=== PATIENT | female | born 1955 | race Caucasian/White ===

== ENCOUNTER → 2016-12-29 23:24 | Outpatient (CLI) | payer MEDICAID | END | disposition home or self-care (01) | LOC: D.LABREF 23:24 | DX: M17.11 Unilateral primary osteoarthritis, right knee (principal); Z11.8 Encounter for screening for other infectious and parasitic diseases ==

== ENCOUNTER 2017-03-03 17:15 | Emergency (ER) | payer MEDICAID | END 2017-03-03 18:15 | disposition left against medical advice (07) | LOC: D.ER 17:15 | DX: R20.2 Paresthesia of skin (principal) ==

== ENCOUNTER 2018-05-26 10:52 | Outpatient (CLI) | payer MEDICAID ==
[~2018-05-26] VITALS: Ht 154.9 cm; Wt 113.6 kg
--- NOTE | ~2018-05-26 | HEMODYNAMI ---
PATIENT:EMILY CONNORS MEDICAL RECORD: [id number] : 55 LOCATION:DDIANE ADMISSION DATE: 05/26/18 Generatedon:05/26/201813:29 Patient name: EMILY CONNORS Patient #: [id number] SSN: : 1955 Date of study: 05/26/2018 Page: Of Hemodynamic Procedure Report Patient Data Patient Demographics Procedure consent was obtained First Name: EMILY Gender: Female Last Name: DORY : 1955 Patient #: [id number] Age: 62 year(s) Race: Unknown Additional ID: [id number] Contact details [address]: [address] [place] [address] [address] State: [place] City: [place] Zip code: [address] Admission Admission Data Admission Date: 05/26/2018 Admission Time: 10:52 Lab Results Lab Result Date: 05/26/2018 Lab Result Time: 0:00 Biochemistry Name Units Result Min Max BUN mg/dl 21 --(----)-* 7 18 Creatinine mg/dl 0.7 --(*---)-- 0.6 1.3 CBC Name Units Result Min Max Hemoglobin g/dl 12.2 *-(----)-- 13.5 17.5 Procedure Procedure Types Cath Procedure Diagnostic Procedure [facility] w/Coronaries Procedure Description Procedure Date Procedure Date: 05/26/2018 Procedure Start Time: 13:13 Procedure End Time: 13:27 Procedure Staff Name Function Manny Soto MD Performing Physician Shasha Wolfe RT Scrub Jasmine Banuelos RN Nurse Soledad Perez RT Monitor Procedure Data Cath Procedure Fluoroscopy Diagnostic fluoroscopy Total fluoroscopy Time: 0.9 time: 0.9 min min Diagnostic fluoroscopy Total fluoroscopy dose: 287 dose: 287 mGy mGy Contrast Material Contrast Material Type Amount (ml) Isovue 300 37 Entry Location Entry Primary Successful Side Size Upsize Upsize Entry Closure Succes sful Closure Location (Fr) 1 (Fr) 2 (Fr) Remarks Device Remarks Femoral Right 5 Fr Exoseal artery Estimated blood loss: 5 ml Diagnostic catheters Device Type Used For End Catheter Placement MULTIPACK Pigtail 5 Fr Procedure catheter MULTIPACK JL 4.0 5Fr Procedure catheter MULTIPACK 3DRC 5Fr Procedure catheter Procedure Complications No complications Procedure Medications Medication Administration Route Dosage Oxygen etCO2 Nasal cannula 2 l/min Lidocaine 2% added to field 20 Heparin Flush Bag added to field 2 bags (1000units/500ml NS) 0.9% NaCl I.V. 100 ml/hr Radial Cocktail I.A. 1 syringe (Verapomil 2mg/Nitro 400mcg/Heparin 1500units) Versed I.V. 1 mg Fentanyl I.V. 50 mcg Versed I.V. 1 mg Fentanyl I.V. 50 mcg Hemodynamics Rest HGB: 12.2 (g/dl) Heart Rate: 65 (bpm) Snapshots Pre Cath Intra NCS Post Cath Vital Signs Time Heart Resp SPO2 etCO2 NIBP (mmHg) Rhythm Pain Sedation Rate (ipm) (%) (mmHg) Status Level (bpm) 13:04:07 64 13 99 28.4 No Cuff NSR 0 (11) 10(A) , No pain 13:08:21 63 11 100 44.8 149/81(134) NSR 0 (11) 10(A) , No pain 13:12:38 64 15 97 47.8 136/78(95) NSR 0 (11) 10(A) , No pain 13:16:56 64 14 94 48.6 117/75(99) NSR 0 (11) 9(A) , No pain 13:21:05 72 17 95 11.9 107/76(99) NSR 0 (11) 9(A) , No pain 13:26:07 70 14 95 48.6 124/75(100) NSR 0 (11) 10(A) , No pain Medications Time Medication Route Dose Verified Delivered Reason Notes Effectiveness by by 13:08:11 Oxygen etCO2 2 l/min Manny Ferraro used for Nasal Brittany Banuelos drip box tender cannula 13:08:17 Lidocaine 2% added 20ml Manny Bryant for local to vial Brittany Soto MD anesthetic field 13:08:22 Heparin Flush added 2 bags Manny Bryant used for Bag to Brittany Soto MD procedure (1000units/500ml field NS) 13:08:29 0.9% NaCl I.V. 100 Manny Ferraro Per ml/hr Brittany Banuelos RN physician 13:08:36 Radial Cocktail I.A. 1 Manny Bryant for (Verapomil syringe Brittany Soto MD vasodilation 2mg/Nitro 400mcg/Heparin 1500units) 13:11:47 Versed I.V. 1 mg Manny Ferraro for sedation Brittany Banuelos RN 13:11:52 Fentanyl I.V. 50 mcg Manny Ferraro for sedation Brittany Banuelos RN 13:18:04 Versed I.V. 1 mg Manny Ruffie for sedation Brittany Banuelos RN 13:18:07 Fentanyl I.V. 50 mcg Manny Ferraro for sedation Brittany Banuelos RN Procedure Log Time Note 12:39:29 Crissy Choe RT(R) sent for patient. Start room use. 12:39:30 Time tracking: Regular hours (M-F 7:00 - 5:00) 12:39:34 Plan of Care:Hemodynamics will remain stable., Cardiac rhythm will remain stable., Comfort level will be maintained., Respiratory function will remain adequate., Patient/ family verbilizes understanding of procedure., Procedure tolerated without complication., Recovers from procedure without complications.. 12:53:52 Patient received from ED to CCL 2 Alert and oriented. Tansferred to table in Supine position. 12:54:17 Warm blankets applied, and susan hugger turned on for patient comfort. 12:54:17 Correct patient and procedure confirmed by team. 12:54:19 Signed procedure consent form obtained from patient. 12:54:20 ECG and BP/O2 sat monitors applied to patient. 12:54:20 Full Disclosure recording started 13:03:17 Vital chart was started 13:03:20 Baseline sample Acquired. 13:03:25 Rhythm: sinus rhythm 13:03:42 H&P Date Dictated: 05/26/2018 ER History on chart.. 13:03:43 Pre-procedure instructions explained to patient. 13:03:44 Pre-op teaching completed and patient verbalized understanding. 13:03:46 Family in waiting room. 13:04:05 Is patient on blood thinner?No 13:04:07 Patient diabetic? No. 13:04:13 Previous problem with sedation/anesthesia? No ? 13:04:14 Snore? Yes 13:04:15 Sleep apnea? Yes 13:04:16 Deviated septum? No 13:04:16 Opens mouth fully? Yes 13:04:17 Sticks out tongue? Yes 13:04:19 Airway obstruction? No ? 13:04:21 Dentures? No ? 13:04:24 Modified Jose Luis's test Ulnar < 7 seconds 13:04:25 Patient pain scale 0/10 ?. 13:05:07 IV patent on arrival in left hand with 0.9% NaCl at [facility]. 13::27 Lab Result : BUN 21 mg/dl 13:: Lab Result : Hemoglobin 12.2 g/dl 13:: Lab Result : Creatinine 0.7 mg/dl 13:05:30 Lab results completed and on chart. 13:05:33 Right Radial & Right Groin area was prepped with chlora-prep and draped in sterile fashion 13:05:34 Alarms reviewed by R. N. 13:05:35 Sharps counted by scrub and verified by R.N. 13:08:11 Oxygen 2 l/min etCO2 Nasal cannula was administered by Jasmine Banuelos RN; used for procedure; 13:08:17 Lidocaine 2% 20ml vial added to field was administered by Manny Soto MD; for local anesthetic; 13:08:22 Heparin Flush Bag (1000units/500ml NS) 2 bags added to field was administered by Manny Soto MD; used for procedure; 13:08:29 0.9% NaCl 100 ml/hr I.V. was administered by Jasmine Banuelos RN; Per physician; 13:08:36 Radial Cocktail (Verapomil 2mg/Nitro 400mcg/Heparin 1500units) 1 syringe I.A. was administered by Manny Soto MD; for vasodilation; 13:09:08 --------ALL STOP TIME OUT------ 13:09:08 Final Timeout: patient, procedure, and site verified with staff and physician. All members of the team are in agreement. 13:09:10 Right Radial & Right Groin site verified by team. 13:09:12 Physical assessment completed. ASA score P 2 - A patient with mild systemic disease as per Manny Soto MD. 13:09:15 Sedation plan: IV Moderate Sedation Medication:Versed, Fentanyl 13:09:35 Use device set Radial Dx or PCI 13:09:37 ACIST Syringe (93510) opened to sterile field. 13:09:38 Bag Decanter (2001S) opened to sterile field. 13:09:38 ACIST Hand Control (81766) opened to sterile field. 13:09:39 ACIST Manifold (74933) opened to sterile field. 13:09:39 Tegaderm 4 x 4 (1626W) opened to sterile field. 13:09:41 Medline Cath Pack ([id number]) opened to sterile field. 13:09:42 DIAGNOSTIC WIRE .035 260cm J wire (757154) opened to sterile field. 13:09:42 MBrace Wrist Support ([id number]) opened to sterile field. 13:09:44 SHEATH 6FR Slender (80-6601) opened to sterile field. 13:11:47 Versed 1 mg I.V. was administered by Jasmine Banuelos RN; for sedation; 13:11:52 Fentanyl 50 mcg I.V. was administered by Jasmine Banuelos RN; for sedation; 13:12:06 Zero performed for pressure channel P1 13:13:18 Procedure started. 13:13:58 Local anesthetic to right radial artery with Lidocaine 2% by Manny Soto MD.INITIAL ACCESS ONLY 13:16:41 SHEATH 5FR [place] ([id number]) opened to sterile field. 13:16:46 Use device set Multipack Set 13:16:48 DIAGNOSTIC Multipack 5Fr catheter set (BA9501) opened to sterile field. 13:17:08 NO RADIAL..ROAD BLOCK 13:18:04 Versed 1 mg I.V. was administered by Jasmine Banuelos RN; for sedation; 13:18:07 Fentanyl 50 mcg I.V. was administered by Jasmine Banuelos RN; for sedation; 13:18:40 Local anesthetic to right femoral artery with Lidocaine 2% by Manny Soto MD.ADDITIONAL ACCESS 13:19:37 A 5 Fr sheath was inserted into the Right Femoral artery 13:19:45 A MULTIPACK Pigtail 5 Fr catheter was advanced over the wire and used for Procedure. 13:20:13 LV gram done using KINCAID 13:20:17 Injector settings: Ml/sec: 10, Volume: 20, 13:20:38 EF : 50 % 13:20:39 Catheter removed. 13:21:11 A MULTIPACK JL 4.0 5Fr catheter was advanced over the wire and used for Procedure. 13:22:09 LCA angiography performed. 13:22:10 Catheter removed. 13:22:25 A MULTIPACK 3DRC 5Fr catheter was advanced over the wire and used for Procedure. 13:23:00 RCA angiography performed. 13:23:02 Catheter removed. 13:23:40 EXOSEAL 5Fr (EX500) opened to sterile field. 13:24:03 Sheath removed intact; hemostasis achieved with Exoseal to the Right Femoral artery. 13:24:10 Procedure ended.(Physican Out) 13:25:09 Fluoroscopy time 00.90 minutes. 13:25:23 Fluoroscopy dose: 287 mGy 13:25:23 Flurop Dose total: 287 13:26:13 Contrast amount:Isovue 300 37ml. 13:26:19 Sharps counted by scrub and verified by R.N. 13:26:23 Post-op/insertion site Right Femoral artery dressed using a 4 x 4 and Tegaderm. 13:26:25 Post-procedure physical assessment completed. ASA score P 2 - A patient with mild systemic disease as per Manny Soto MD. 13:26:28 Post procedure rhythm: sinus rhythm 13:26:30 Estimated blood loss: 5 ml 13:26:32 Post procedure instruction explained to patient.Patient verbalizes understanding. 13:26:35 Patient needs reinforcement of post procedure teaching. 13:27:06 Procedure and supply charges have been captured, reviewed, submitted and are correct. 13:27:08 Procedure Complication : No complications 13:27:10 Vital chart was stopped 13:27:10 See physician's report for complete and final results. 13:27:13 Report given to Pre/Post Procedure Room. 13:27:15 Patient transfered to Pre/Post Procedure Room with Bed. 13:27:17 Procedure ended. 13:27:17 Full Disclosure recording stopped 13:27:21 End room use (Document Last) Device Usage Item Name Manufacture Quantity Catalog Hospital Part Current Minimal Lot# / Number Charge Number Stock Stock Serial# Code ACIST Acist 1 06414 872056 023697 508522 20 Syringe Zeligsoft (42474) [employer] Bag Microtek 1 252145 29750 335431 5 Decanter [employer] Inc. () ACIST Hand Acist 1 45023 409059 967583 021400 5 Control Medical (97556) Systems Inc ACIST Acist 1 89662 077830 031896 242378 5 Manifold Medical (68843) Systems Inc Tegaderm 4 3M 1 1626W 676995 296738 931109 5 x 4 (1626W) Medline Medline 1 [id number] 106943 82837 474013 5 Cath Pack ([id number]) DIAGNOSTIC St Kristian 1 718122 117423 040033 335802 30 WIRE .035 260cm J wire (045535) MBrace Advanced 1 140-0250-00 216728 92572 821595 5 Wrist Vascular Support Dynamics ([id number]) SHEATH 6FR Terumo 1 [id number] 786377 026557 919828 5 Slender (80-1060) SHEATH 5FR Terumo 1 [id number] 991244 280014 056141 5 [place] (AXG444) DIAGNOSTIC Cardinal 1 TJ8020 064165 79963 053618 30 Multipack Health 5Fr catheter set (FB1272) MULTIPACK Cardinal 1 460596 5 Pigtail 5 Health Fr catheter MULTIPACK Cardinal 1 804168 5 JL 4.0 5Fr Health catheter MULTIPACK Cardinal 1 837442 5 3DRC 5Fr Health catheter EXOSEAL 5Fr Cardinal 1 EX500 109240 563000 459337 10 (EX500) Health Signature Audit [place] Stage Time Signature Unsigned Intra-Procedure 05/26/2018 Soledad Perez 1:29:11 PM RT(R) Signatures Monitor : Soledad Perez Signature : RT Date : Time : [place] [id number] [place] [address]
[2018-05-26 10:58] VITALS: Ht 154.9 cm; Wt 113.6 kg
[2018-05-26] MEDS ORDERED: ZIPSOR25 MG PO (11:01)
[2018-05-26 11:28] LABS: BASOPHILS 0.4 % (0-2); EOSINOPHILS 3.4 % (0-7); HEMATOCRIT 36.8 % (36.0-48.0); HEMOGLOBIN 12.2 g/dL (12-16); IMMATURE GRANULOCYTES 0.2 % (0-5); LYMPHOCYTES 35.4 % (15-50); MCH 30.3 pg (26.0-34.0); MCHC 33.2 g/dL (31.0-37.0); MCV 91.5 fL (80.0-100.0); MEAN PLATELET VOLUME 11.1 fL (7.4-10.4); MONOCYTES 8.3 % (2-11); NEUTROPHILS 52.3 % (40-80); PLATELET COUNT 231 10x3/uL (130-400); RBC 4.02 10x6/uL (4.00-5.40); RDW 14.5 % (11.5-14.5); WBC 4.9 10x3/uL (4.8-10.8)
[2018-05-26 11:47] LABS: ALBUMIN 3.3 g/dL (3.4-5.0); ALKALINE PHOSPHATASE 75 U/L (46-116); ALT (SGPT) 30 U/L (10-68); BILIRUBIN - TOTAL 0.22 mg/dL (0.2-1.3); CALC OSMOLALITY 281 mosm/kg (275-300); CALCIUM 9.3 mg/dL (8.5-10.1); CARBON DIOXIDE 25.1 mmol/L (21.0-32.0); CHLORIDE - SERUM 106 mmol/L (98-107); CREATININE - SERUM 0.7 mg/dL (0.6-1.3); GLUCOSE 102 mg/dL (74-106); POTASSIUM - SERUM 4.3 mmol/L (3.5-5.1); PROTEIN - SERUM 7.4 g/dL (6.4-8.2); SODIUM 140 mmol/L (136-145); UREA NITROGEN 21 mg/dL (7-18); eGFR NON AFRICAN AMERICAN 90 mL/min (90-120)
[2018-05-26 11:49] LABS: INR 0.88 (0.85-1.17); PROTIME 11.4 SECONDS (11.6-15.0)
[2018-05-26 11:55] LABS: CKMB 2.2 U/L (0.0-3.6); CREATINE KINASE 128 UL (21-215); TROPONIN-I < 0.017 ng/mL (0.000-0.060)
[2018-05-26 12:56] VITALS: BP 132/69
--- NOTE | 2018-05-26 13:26 | CN ---
PATIENT NAME:EMILY CONNORS MEDICAL RECORD: [id number] : 55 LOCATION:D.CAT ADMIT DATE: ACCOUNT: [id number] CONSULTING PHYSICIAN: ALY JAVIER MD REFERRING PHYSICIAN: ALY JAVIER MD DATE OF CONSULTATION: 05/26/2018 CARDIOLOGY CONSULTATION DIAGNOSES: 1. Chest pain compatible with angina. 2. Abnormal ECG. 3. Smoking history. HISTORY OF PRESENT ILLNESS: Ms. Connors has no history of ischemic heart disease. She has had 1 month of increasing episodes of chest discomfort. They have gotten very frequent and at rest now. Previously, they were just with exertion. She was seen by Dr. Collins. Had chest pain there today. Sent to the Emergency Room. Has chest pain here. Currently has chest pain at 4/10. Her EKG has a right bundle-branch block, but no acute ST-T abnormalities. PHYSICAL EXAMINATION: GENERAL APPEARANCE: Well-nourished, well-developed, appears stated age. Level of distress, comfortable. PSYCHIATRIC: Mental status, alert, normal affect. Orientation, oriented to time, place and person. EYES: Lids and conjunctiva, noninjected. No discharge, no pallor. ENT: Lips, teeth, gums, normal dentition. Oropharynx, no cyanosis, no pallor. NECK: Carotid arteries, bilateral normal upstroke, no bruits, no thrills. JUGULAR VEINS: No jugular venous pressure or distention. CERVICAL LYMPH NODES: Nontender, nonenlarged. THYROID: Not enlarged. Nontender. No nodules. LUNGS: Respiratory effort, unlabored. CHEST: Normal curvature. No thoracic deformity. No chest wall tenderness. Percussion, resonant. Auscultation, clear. No wheezes, no rales, no rhonchi. CARDIOVASCULAR: Precordial exam, nondisplaced. No heaves or pericardial thrills. Rate and rhythm, regular. Heart sounds, normal S1, normal S2. No S3, no gallop, no rub. Systolic murmur, not heard. Diastolic murmur, not heard. EXTREMITIES: No cyanosis, no edema. Peripheral pulses, full and equal in all extremities, except as noted. No bruits appreciated. ABDOMEN: Soft, nondistended. Normal aorta. No bruit. Nontender. No masses. Liver, nontender, no hepatomegaly. Spleen, nontender, no splenomegaly. MUSCULOSKELETAL: No joint tenderness. No joint swelling. No erythema. NEUROLOGICAL: Normal gait, normal strength, normal tone. SKIN: Warm and dry. OVERALL IMPRESSION: Chest pain in an escalating fashion. It is unstable. We will proceed with coronary angiography. Further care depends upon the findings of the angiography. TRANSINT:[id number] Voice Confirmation ID: [id number] DOCUMENT ID: [id number] CONSULT REPORT [id number] EMILY CONNORS JEFFREY MD at 1326 CC: [id number] DICTATION DATE: 05/26/18 1222 SALES AND MERCHANDISING REPRESENTATIVE: 05/26/18 1324 [facility] [address] [place] [address]
--- NOTE | 2018-05-26 13:55 | NUR ---
2L NC, NO RESP DISTRESS. RIGHT GROIN 5F EXOSEAL CDI, NO BLEEDING OR HEMATOMA NOTED. NO C/O PAIN OR NAUSEA. VSS. FAMILY AT BEDSIDE, CALL LIGHT WITHIN REACH.
--- NOTE | 2018-05-26 14:25 | NUR ---
RESTING COMFORTABLY WITH NO C/O. RIGHT GROIN 5F EXOSEAL CDI, NO BLEEDING NOTED. 2L NC WITH NO RESP DISTRESS. VSS. WILL CONTINUE TO MONITOR.
--- NOTE | 2018-05-26 14:45 | NUR ---
HOB ELEVATED 30 DEGREES. RIGHT GROIN 5F EXOSEAL CDI, NO BLEEDING OR HEMATOMA NOTED. SIPPING ON DRINK AND EATING SANDWICH WITH NO C/O NAUSEA. VSS. CALL [facility] WITHIN REACH.
--- NOTE | 2018-05-26 15:10 | NUR ---
RIGHT PIV D/C'D WITH CATHETER INTACT, BAND AID TO SITE. DISCHARGE INSTRUCTIONS GIVEN, VERBALIZED UNDERSTANDING. UP TO BEDSIDE TO GET DRESSED.
--- NOTE | 2018-05-26 15:28 | NUR ---
TAKEN OUT VIA WHEELCHAIR BY CATH MACHINE SKIVER. LEFT FACILITY WITH FAMILY AND ALL PERSONAL BELONGINGS.
--- NOTE | 2018-05-30 10:22 | OP ---
PATIENT NAME: EMILY CONNORS MEDICAL RECORD: [id number] :55 LOCATION:D.CAT ADMISSION DATE: SURGEON: ALY JAVIER MD DATE OF OPERATION: 05/26/2018 PROCEDURES: 1. Left heart catheterization. 2. Selective coronary angiography. 3. Left ventriculogram. INDICATION: Chest pain compatible with angina. PROCEDURE IN DETAIL: After informed consent was obtained and after detailed explanation of the risks, benefits as well as alternative therapies, the patient elected to proceed with angiogram and heart catheterization. The right femoral area was prepped and draped in normal sterile fashion. Right femoral artery was cannulated via Seldinger technique with placement of 6-Occitan sheath. All catheters exchanged through this sheath. FINDINGS: Left ventriculogram was performed in standard 30-degree KINCAID view, reveals good cardiac wall motion throughout all segments. Overall ejection fraction estimated at 55% to 60%. SELECTIVE CORONARY ANGIOGRAPHY: Left main, left anterior descending, left circumflex, and right coronary artery are smooth-walled vessels with no angiographic evidence of coronary artery disease. OVERALL IMPRESSION: 1. No angiographic evidence of coronary artery disease. 2. Normal left heart pressures. 3. Normal left ventricular systolic function. Chest pain is noncardiac in etiology. No further cardiac workup needs to be ascertained. TRANSINT:[id number] Voice Confirmation ID: [id number] DOCUMENT ID: [id number] ALY JAVIER MD at 1022 CC: SOLITARIO WATKINS DO [id number] DICTATION DATE: 05/26/18 1328 SERVICE ENGINE REPAIRER: 05/26/18 1352 DEP CLI 05/26/18 [place] [id number]
== END 2018-05-26 15:28 | disposition home or self-care (01) ==
LOC: D.CATH 10:52 → D.ER 10:52 → EDSTATUS 12:24 → D.CATH 15:28
PROVIDERS: Family Medicine
DX: R07.9 Chest pain, unspecified (principal)

== ENCOUNTER 2018-06-13 15:45 | Emergency (ER) | payer MEDICAID ==
[~2018-06-13] VITALS: Ht 154.9 cm; Wt 113.6 kg
[~2018-06-13 15:45] MED LIST: ZIPSOR25 MG PO
[2018-06-13 15:59] VITALS: Ht 154.9 cm; Wt 113.6 kg
[2018-06-13] MEDS ORDERED: FIORICET/ESGIC1 TAB PO (17:43)
[2018-06-13 19:13] VITALS: BP 115/61
== END 2018-06-13 19:18 | disposition home or self-care (01) ==
LOC: D.ER 15:45
DX: R51 Headache (principal)